=== PATIENT | male | born 1990 | race Caucasian/White ===

== ENCOUNTER → 2023-10-15 14:12 | Outpatient (CLI) | payer OTHER, SELFPAY ==
--- NOTE | 2023-10-15 13:58 | DI.RAD_ITS ---
Exam(s) XR HAND RT COMPLETE EXAM: XR HAND RT COMPLETE CLINICAL HISTORY: Puncture wound with foreign body, lt hand, yesterday with nail gun,[id number]. TECHNIQUE: 2D digital imaging was performed. Three views. COMPARISON: No exams were available for comparison FINDINGS: BONES: No acute fracture is present. No bony destructive lesion is seen. JOINTS: No dislocation present. SOFT TISSUE: Normal. No foreign body. IMPRESSION: Unremarkable radiographs of the right hand. DATA REPOSITORY: RADIATION DOSE DELIVERED:
== END ==
PROVIDERS: Visit Provider Physician Assistant Medical
DX: S61.442A Puncture wound with foreign body of left hand, initial encounter (principal)
CPT/HCPCS: 73130